=== PATIENT | male | born 1980 | race Caucasian/White ===

== ENCOUNTER 2021-04-10 14:19 | Emergency (ER) | payer BC ==
--- NOTE | 2021-04-10 14:45 | EDM.PDOC ---
ED HPI GENERAL MEDICAL PROBLEM - General Chief Complaint: Behavioral/Psych Time Seen by Provider: 04/10/21 14:28 Source of Information: Reports: Patient History Limitations: Reports: No Limitations - History of Present Illness INITIAL COMMENTS - FREE TEXT/NARRATIVE: HISTORY AND PHYSICAL: History of present illness: Patient is a 40-year-old male who presents to the emergency room in police custody after attempting suicide by eating in the car with the exhaust hose and a window. The patient reported to Dr. Puentes that the patient turned on the air conditioning from point after having thoughts of not wanting to go through with suicide. It was reported that the patient had been in the car for approximately 1 hour when his mom found him and called law enforcement for assistance. The car door was not locked and the police had to pull the patient out as he was unconscious and unable to get out of the car per his self. The patient was brought to the emergency room ambulating per self with law enforcement. The patient denies any fever, chills, headache, change in vision, syncope or near syncope. Denies any chest pain, back pain, shortness of breath or cough. Denies any abdominal pain, nausea, vomiting, diarrhea, constipation or dysuria. Has not noted any blood in urine or stool. Patient has been eating and drinking appropriately. Review of systems: As per history of present illness and below otherwise all systems reviewed and negative. Past medical history: As per history of present illness and as reviewed below otherwise noncontributory. Surgical history: As per history of present illness and as reviewed below otherwise noncontributory. Social history: See social history for further information Family history: As per history of present illness and as reviewed below otherwise noncontributory. Physical exam: General: Well developed and well nourished. Alert and orientated x 3. Nontoxic in appearance and in no acute distress. Vital signs are stable and have been rev iewed by me. Nursing notes were reviewed. HEENT: Atraumatic, normocephalic, pupils equal and reactive bilaterally, negative for conjunctival pallor or scleral icterus, mucous membranes moist, TMs normal bilaterally, throat clear, neck supple, nontender, trachea midline. No drooling or trismus noted. No meningeal signs. No hot potato voice noted. Lungs: Clear to auscultation bilaterally. No wheezes, rales, or rhonchi. Chest nontender. Normal work of breathing, no accessory muscles used. Heart: S1S2, regular rate and rhythm without overt murmur, gallops, or rubs. No JVD. No peripheral edema Abdomen: Soft, nondistended, nontender. Normoactive bowel sounds. Negative for masses or costovertebral tenderness. Skin: Intact, warm, dry. No lesions or rashes noted. Hematologic: No petechiae or purpra. Mucosa appropriate color and normal nail bed color and refill. Extremities: Atraumatic, moves all extremities per self without difficulty or deficits, negative for cords or calf pain. Neurovascular unremarkable. Neuro: Awake, alert, oriented. Cranial nerves II through XII unremarkable. Cerebellum unremarkable. Motor and sensory unremarkable throughout. Exam nonfocal. Psychiatric: Flat affect. Answering questions appropriately. Notes: *This patient was seen and evaluated during the 2019 SARS-CoV-2 novel coronavirus pandemic period. Community viral transmission is ongoing at time of this encounter and the emergency department is operating under pandemic response procedures. As stated above the patient was brought to the emergency department by law enforcement for a suicide attempt of sitting in a closed car with the exhaust car. The patient is withdrawn and takes prodding to answer the questions. Patient states that he has been having thoughts of suicide for the past 3 days and that is when he came up with the plan. He does not identify a specific trigger as to why he attempted suicide today. Dr. Puentes consulted on treatment plan. I am unable to obtain a carboxyhemoglobin level at this facility. He does not have any neurological deficits. He is cognitively stable. We will keep the patient on a nonrebreather until we can ascertain his carboxyhemoglobin level. CBC: WBC 21.93, RBC 5.91, hemoglobin 15.1. CMP is unremarkable except for creatinine 1.4 and a glucose of 138. Salicylate and acetaminophen within normal limits. Ethanol alcohol level 29. Ordered a liter of fluids. Patient's urine drug screen is negative. At [address] Madrigal from [facility] in [place] regarding the need for a psych admission. Dr. Madrigal accepted the patient after the patient goes to their emergency room and has a carboxyhemoglobin. I spoke with [facility] and requested to speak to the emergency department but she stated that it was not necessary and that every patient went through the emergency department and she would let them know of the needed test. They are attempting to arrange transportation at this time. The patient's blood pressure is 150/100 and he did not take his losartan today so I have ordered his losartan dose. Diagnostics: CBC, CMP, salicylate, acetaminophen, ethanol alcohol level, EKG, UA, urine drug screen Therapeutics: IV fluids Impression: Suicide attempt Definitive disposition and diagnosis as appropriate pending reevaluation and review of above. - Related Data Allergies Allergy/AdvReac Type Severity Reaction Status Date / Time lisinopril Allergy Cough Verified 04/10/21 14:23 Home Meds: Home Meds Losartan [Cozaar] 1 tab PO DAILY 04/10/21 [History] Past Medical History Cardiovascular History: Reports: Hypertension Psychiatric History: Reports: Depression, Suicide Attempt, Suicidal Ideation - Infectious Disease History Infectious Disease History: Reports: None - Past Surgical History Other Musculoskeletal Surgeries/Procedures:: Knee surgery Social & Family History - Family History Family Medical History: No Pertinent Family History - Recreational Drug Use Recreational Drug Use: No ED ROS GENERAL - Review of Systems Review Of Systems: Comprehensive ROS is negative, except as noted in HPI. - Physical Exam Exam: See Below (See dictation) Course - Vital Signs Last Recorded V/S: Last Vital Signs Temp 98.0 F 04/10/21 21:20 Pulse 90 04/10/21 21:20 Resp 18 04/10/21 21:20 BP 141/98 H 04/10/21 21:20 Pulse Ox 100 04/10/21 21:20 - Orders/Labs/Meds Orders: Active Orders 24 hr Category Date Time Status EKG Documentation Completion [RC] STAT Care 04/10/21 14:44 Active Oxygen Therapy, ED [RC] ASDIRECTED Care 04/10/21 14:55 Active CARBOXYHEMOGLOBIN [BG] Stat Lab 04/10/21 14:44 Ordered CORONAVIRUS COVID-19 JUANA [MOLEC] Stat Lab 04/10/21 20:45 Received Labs: Laboratory Tests 04/10/21 04/10/21 04/10/21 Range/Units 14:26 14:26 14:36 WBC 21.93 H (4.0-11.0) K/uL RBC 5.97 H (4.50-5.90) M/uL Hgb 18.1 H (13.0-17.0) g/dL Hct 51.8 H (38.0-50.0) % MCV 86.8 (80.0-98.0) fL MCH 30.3 (27.0-32.0) pg MCHC 34.9 (31.0-37.0) g/dL RDW Std Deviation 40.5 (28.0-62.0) fl RDW Coeff of Nic 13 (11.0-15.0) % Plt Count 291 (150-400) K/uL MPV 10.80 (7.40-12.00) fL Neut % (Auto) 89.4 H (48.0-80.0) % Lymph % (Auto) 4.4 L (16.0-40.0) % Calhoun % (Auto) 6.1 (0.0-15.0) % Eos % (Auto) 0.0 (0.0-7.0) % Baso % (Auto) 0.1 (0.0-1.5) % Neut # (Auto) 19.6 H (1.4-5.7) K/uL Lymph # (Auto) 1.0 (0.6-2.4) K/uL Calhoun # (Auto) 1.3 H (0.0-0.8) K/uL Eos # (Auto) 0.0 (0.0-0.7) K/uL Baso # (Auto) 0.0 (0.0-0.1) K/uL Nucleated RBC % 0.0 /100WBC Nucleated RBCs # 0 K/uL Sodium (136-148) mmol/L Potassium (3.5-5.1) mmol/L Chloride (98-107) mmol/L Carbon Dioxide (21.0-32.0) mmol/L BUN (7.0-18.0) mg/dL Creatinine (0.8-1.3) mg/dL Est Cr Clr Drug Dosing mL/min Estimated GFR (MDRD) ml/min Glucose (74-106) mg/dL Calcium (8.5-10.1) mg/dL Magnesium (1.8-2.4) mg/dL Total Bilirubin (0.2-1.0) mg/dL AST (15-37) IU/L ALT (14-63) IU/L Alkaline Phosphatase (46-116) U/L Troponin I (0.000-0.056) ng/mL Total Protein (6.4-8.2) g/dL Albumin (3.4-5.0) g/dL Globulin (2.6-4.0) g/dL Albumin/Globulin Ratio (0.9-1.6) TSH 3rd Generation (0.36-3.74) uIU/mL Urine Color YELLOW Urine Appearance SLT CLOUDY Urine pH 6.0 (5.0-8.0) Ur Specific Ovid >= 1.030 (1.001-1.035) Urine Protein 30 H (NEGATIVE) mg/dL Urine Glucose (UA) NEGATIVE (NEGATIVE) mg/dL Urine Ketones NEGATIVE (NEGATIVE) mg/dL Urine Occult Blood TRACE-INTACT H (NEGATIVE) Urine Nitrite NEGATIVE (NEGATIVE) Urine Bilirubin NEGATIVE (NEGATIVE) Urine Urobilinogen 0.2 (<2.0) EU/dL Ur Leukocyte Esterase NEGATIVE (NEGATIVE) U Hyaline Cast (Auto) 6-10 (0-2/LPF) Urine RBC 1-3 (0-2/HPF) Urine WBC 2-4 (0-5/HPF) Ur Epithelial Cells FEW (NONE-FEW) Urine Bacteria FEW (NEGATIVE) Urine Mucus MODERATE (NONE-MOD) Salicylates (0-20) mg/dL Urine Opiates Screen NEGATIVE (NEGATIVE) Ur Oxycodone Screen NEGATIVE (NEGATIVE) Urine Methadone Screen NEGATIVE (NEGATIVE) Acetaminophen ug/mL Ur Barbiturates Screen NEGATIVE (NEGATIVE) Ur Phencyclidine Scrn NEGATIVE (NEGATIVE) Ur Amphetamine Screen NEGATIVE (NEGATIVE) U Methamphetamines Scrn NEGATIVE (NEGATIVE) U Benzodiazepines Scrn NEGATIVE (NEGATIVE) U Cocaine Metab Screen NEGATIVE (NEGATIVE) U Marijuana (THC) Screen NEGATIVE (NEGATIVE) Ethyl Alcohol mg/dL 04/10/21 04/10/21 Range/Units 14:36 14:36 WBC (4.0-11.0) K/uL RBC (4.50-5.90) M/uL Hgb (13.0-17.0) g/dL Hct (38.0-50.0) % MCV (80.0-98.0) fL MCH (27.0-32.0) pg MCHC (31.0-37.0) g/dL RDW Std Deviation (28.0-62.0) fl RDW Coeff of Nic (11.0-15.0) % Plt Count (150-400) K/uL MPV (7.40-12.00) fL Neut % (Auto) (48.0-80.0) % Lymph % (Auto) (16.0-40.0) % Calhoun % (Auto) (0.0-15.0) % Eos % (Auto) (0.0-7.0) % Baso % (Auto) (0.0-1.5) % Neut # (Auto) (1.4-5.7) K/uL Lymph # (Auto) (0.6-2.4) K/uL Calhoun # (Auto) (0.0-0.8) K/uL Eos # (Auto) (0.0-0.7) K/uL Baso # (Auto) (0.0-0.1) K/uL Nucleated RBC % /100WBC Nucleated RBCs # K/uL Sodium 141 (136-148) mmol/L Potassium 4.0 (3.5-5.1) mmol/L Chloride 103 (98-107) mmol/L Carbon Dioxide 25.0 (21.0-32.0) mmol/L BUN 7 (7.0-18.0) mg/dL Creatinine 1.4 H (0.8-1.3) mg/dL Est Cr Clr Drug Dosing 79.27 mL/min Estimated GFR (MDRD) 56.1 ml/min Glucose 138 H (74-106) mg/dL Calcium 9.2 (8.5-10.1) mg/dL Magnesium 2.2 (1.8-2.4) mg/dL Total Bilirubin 1.8 H (0.2-1.0) mg/dL AST 18 (15-37) IU/L ALT 24 (14-63) IU/L Alkaline Phosphatase 108 (46-116) U/L Troponin I < 0.050 (0.000-0.056) ng/mL Total Protein 8.9 H (6.4-8.2) g/dL Albumin 4.9 (3.4-5.0) g/dL Globulin 4.0 (2.6-4.0) g/dL Albumin/Globulin Ratio 1.2 (0.9-1.6) TSH 3rd Generation 0.74 (0.36-3.74) uIU/mL Urine Color Urine Appearance Urine pH (5.0-8.0) Ur Specific Ovid (1.001-1.035) Urine Protein (NEGATIVE) mg/dL Urine Glucose (UA) (NEGATIVE) mg/dL Urine Ketones (NEGATIVE) mg/dL Urine Occult Blood (NEGATIVE) Urine Nitrite (NEGATIVE) Urine Bilirubin (NEGATIVE) Urine Urobilinogen (<2.0) EU/dL Ur Leukocyte Esterase (NEGATIVE) U Hyaline Cast (Auto) (0-2/LPF) Urine RBC (0-2/HPF) Urine WBC (0-5/HPF) Ur Epithelial Cells (NONE-FEW) Urine Bacteria (NEGATIVE) Urine Mucus (NONE-MOD) Salicylates <0.2 (0-20) mg/dL Urine Opiates Screen (NEGATIVE) Ur Oxycodone Screen (NEGATIVE) Urine Methadone Screen (NEGATIVE) Acetaminophen <2.0 ug/mL Ur Barbiturates Screen (NEGATIVE) Ur Phencyclidine Scrn (NEGATIVE) Ur Amphetamine Screen (NEGATIVE) U Methamphetamines Scrn (NEGATIVE) U Benzodiazepines Scrn (NEGATIVE) U Cocaine Metab Screen (NEGATIVE) U Marijuana (THC) Screen (NEGATIVE) Ethyl Alcohol 29 mg/dL Meds: Medications Discontinued Medications Generic Name Dose Route Start Last Admin Trade Name Freq PRN Reason Stop Dose Admin Sodium Chloride 1,000 mls @ 999 mls/hr 04/10/21 15:45 04/10/21 15:57 Normal Saline IV 04/10/21 16:45 999 mls/hr .BOLUS ONE Administration Losartan Potassium 50 mg 04/10/21 17:09 04/10/21 17:39 Losartan 50 Mg Tab PO 04/10/21 17:10 50 mg ONETIME ONE Administration Departure - Departure Time of Disposition: 21:20 Disposition: DC/Tfer to Psych Hosp/Unit 65 Condition: Good Clinical Impression: Self-harm - Discharge Information *PRESCRIPTION DRUG MONITORING PROGRAM REVIEWED*: Not Applicable *COPY OF PRESCRIPTION DRUG MONITORING REPORT IN PATIENT RK: Not Applicable Referrals: PCP,None [Primary Care Provider] - Forms: ED Department Discharge Sepsis Event Note (ED) - Evaluation Sepsis Screening Result: No Definite Risk - Focused Exam Vital Signs: Vital Signs Temp Pulse Resp BP BP Pulse Ox Pulse Ox 04/10/21 21:20 98.0 F 90 18 141/98 H 100 04/10/21 20:50 98.0 F 92 20 151/89 H 99 04/10/21 20:20 98.0 F 99 18 151/89 H 99 04/10/21 19:50 97.8 F 91 20 142/91 H 100 04/10/21 19:20 83 18 149/95 H 100 04/10/21 18:50 92 18 155/95 H 100 04/10/21 18:20 98 18 148/101 H 100 04/10/21 17:50 98 20 154/102 H 100 04/10/21 17:39 153/99 H 04/10/21 17:20 105 H 18 153/99 H 100 04/10/21 16:50 100 18 156/103 H 100 04/10/21 16:20 96 20 150/104 H 100 04/10/21 15:50 99 18 154/102 H 100 04/10/21 15:20 117 H 18 153/107 H 99 04/10/21 14:55 100 04/10/21 14:50 117 H 18 136/101 H 98 100 04/10/21 14:45 99 04/10/21 14:20 97.6 F 135 H 18 143/96 H 97 - My Orders Last 24 Hours: My Active Orders 04/10/21 14:44 EKG Documentation Completion [RC] STAT CARBOXYHEMOGLOBIN [BG] Stat 04/10/21 14:55 Oxygen Therapy, ED [RC] ASDIRECTED 04/10/21 20:45 CORONAVIRUS COVID-19 JUANA [MOLEC] Stat - Assessment/Plan Last 24 Hours: My Active Orders 04/10/21 14:44 EKG Documentation Completion [RC] STAT CARBOXYHEMOGLOBIN [BG] Stat 04/10/21 14:55 Oxygen Therapy, ED [RC] ASDIRECTED 04/10/21 20:45 CORONAVIRUS COVID-19 JUANA [MOLEC] Stat
--- NOTE | 2021-04-10 14:58 | PCM.SN.2 ---
- Free Text/Narrative Note: EKG at 1441 hrs. sinus tachycardia heart rate 107 CT interval 157. QT duration is 133 and axis is -13. The QRS is essentially normal and ST and T are reasonably normal. I have no prior for comparison impression no acute injury
[2021-04-10 15:18] LABS: ACETAMINOPHEN <2.0 ug/mL; BLOOD UREA NITROGEN,BUN 7 mg/dL (7.0-18.0); CHLORIDE,CL 103 mmol/L (98-107); GLUCOSE RANDOM 138 mg/dL (74-106); SODIUM,NA 141 mmol/L (136-148)
[2021-04-10] MEDS ORDERED: Sodium Chloride 0.9% 1,000 ML IV ONE (15:45)
[2021-04-10] MEDS ORDERED: Losartan 50 MG Tab PO ONE (17:09)
== END 2021-04-10 21:31 ==
LOC: MW.ED 14:19
DX: R45.851 Suicidal ideations (principal); I10 Essential (primary) hypertension; Z79.899 Other long term (current) drug therapy; Y33.XXXA Other specified events, undetermined intent, initial encounter
CPT/HCPCS: 36415; 80053; 80143; 80179; 80305; 80307; 81001; 83735; 84443; 84484; 85025; 87635; 93005; 99285; A9270; J7030; U0002